=== PATIENT | male | born 1995 ===

== ENCOUNTER 2019-12-16 14:46 | Emergency (ER) | payer SELFPAY ==
[2019-12-16 14:57] VITALS: BP 153/51; PULSE 91
--- NOTE | 2019-12-16 15:34 | EDM.PDOC ---
ED HPI GENERAL MEDICAL PROBLEM - General Stated Complaint: Right ear pain Time Seen by Provider: 12/16/19 15:05 Source of Information: Reports: Patient History Limitations: Reports: No Limitations - History of Present Illness INITIAL COMMENTS - FREE TEXT/NARRATIVE: He presents to the emergency department complaining of pain in his right ear. He has a constant deep fairly severe pain in the right ear. Pain extends into the right side of his face and jaw. Increased pain when he opens his mouth. Pain started yesterday and is worse today. He has noted a little bit of drainage out of that ear. No fever or chills. No sore throat. No nasal congestion. No cough or shortness of breath. 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 [No Known Home Meds] 12/16/19 [History] ED ROS GENERAL - Review of Systems Review Of Systems: See Below Constitutional: Denies: Fever, Chills HEENT: Reports: Ear Discharge, Ear Pain. Denies: Eye Pain, Sinus Problem, Throat Pain Respiratory: Denies: Shortness of Breath, Cough Cardiovascular: Denies: Chest Pain, Palpitations Endocrine: Denies: Fatigue GI/Abdominal: Denies: Abdominal Pain, Nausea, Vomiting : Denies: Dysuria, Frequency, Urgency Musculoskeletal: Denies: Neck Pain Skin: Reports: No Symptoms Neurological: Denies: Confusion, Dizziness, Headache Psychiatric: Denies: Anxiety, Depression Hematologic/Lymphatic: Reports: No Symptoms Immunologic: Reports: No Symptoms ED EXAM, GENERAL - Physical Exam Exam: See Below Exam Limited By: No Limitations General Appearance: Alert, WD/WN, No Apparent Distress Ears: Other (Right external ear is unremarkable. Right canal is diffusely swollen with whitish drainage. TM was not visible. Increased pain with pulling on the right ear.) Ear Exam: Left Ear: Auricle Normal, Canal Normal, TM normal Nose: Normal Inspection Throat/Mouth: Normal Inspection, Normal Gums, Normal Oropharynx Head: Atraumatic, Normocephalic Neck: Normal Inspection, Supple, Non-Tender. No: Lymphadenopathy (L), Lymphadenopathy (R) Respiratory/Chest: No Respiratory Distress, Lungs Clear, Normal Breath Sounds Cardiovascular: Regular Rate, Rhythm, No Murmur Course - Vital Signs Last Recorded V/S: Last Vital Signs Temp 37.6 C 12/16/19 14:47 Pulse 91 12/16/19 14:47 Resp 20 12/16/19 14:47 BP 153/51 H 12/16/19 14:47 Pulse Ox 100 12/16/19 14:47 Departure - Departure Time of Disposition: 15:25 Disposition: Home, Self-Care 01 Clinical Impression: Otitis externa of right ear - Discharge Information Instructions: Ear Drops, Adult, Otitis Externa Additional Instructions: Cortisporin otic drops 2 drops in the right ear twice daily. He is dispensed 1 bottle in the ED. Amoxicillin 875 mg 1 tablet twice daily. Dispense 6 tablets in the ED and was given a prescription for an additional week. Push fluids. Tylenol and/or Advil as needed for pain. If he is still having significant pain tomorrow he should call and would give him a note to be out of work tomorrow. Follow-up as needed. Sepsis Event Note (ED) - Evaluation Sepsis Screening Result: Possible Sepsis Risk - Focused Exam Vital Signs: Vital Signs Temp Pulse Resp BP Pulse Ox 12/16/19 14:47 37.6 C 91 20 153/51 H 100
== END 2019-12-16 15:30 | disposition home or self-care (01) ==
LOC: LL.ED 14:46
DX: H60.91 Unspecified otitis externa, right ear (principal)
CPT/HCPCS: 99282; 99283